=== PATIENT | female | born 1995 ===

== ENCOUNTER 2020-09-25 10:42 | Outpatient (CLI) | payer OTHER ==
[2020-09-26 11:06] LABS: SARS-CoV-2 MS2 Positive; SARS-CoV-2 N Gene Negative; SARS-CoV-2 S Gene Negative; SARS-CoV-2 by NAA Not Detected (NotDetected); SARS-CoV-2 orf1ab Negative
== END 2020-09-25 10:43 | disposition home or self-care (01) ==
LOC: LABBT 10:42
PROVIDERS: ATTEND Advanced Practice Midwife
DX: Z20.828 Contact with and (suspected) exposure to other viral communicable diseases (principal)
CPT/HCPCS: 87635; U0003

== ENCOUNTER 2020-09-27 18:00 | Inpatient (IN) | payer OTHER ==
[~2020-09-27 18:00] MED LIST: Bupivacaine 0.25% HCL 30 ML VIAL ONE; Bupivacaine HCl 0.5%/Epinephrine 1:200,000/PF 30 ml Vial ONE; Bupivacaine/Epinephrine 0.25% 30 ML VIAL ONE; Lidocaine 2% MPF 10 ML AMP (For Epidural Use) ONE
[2020-09-27 19:22] VITALS: BMI 32.5
[2020-09-27] MEDS: Lactated Ringer's 1,000 ML IV SCH (19:30)
[2020-09-27] MEDS ORDERED: Lidocaine 1% (PF) 30 ML VIAL SC PRN (19:34)
[2020-09-27] MEDS ORDERED: hydrALAZINE 20 MG/ML VIAL SLOW IVP PRN (19:34)
[2020-09-27] MEDS ORDERED: Butorphanol Tartrate 1 MG/ML VIAL SLOW IVP PRN (19:34)
[2020-09-27] MEDS ORDERED: Promethazine HCl 25 MG/ML VIAL IM PRN (19:34)
[2020-09-27] MEDS ORDERED: NS / Oxytocin 40 units/1000ml 1,000 ML IV PRN (19:34)
[2020-09-27] MEDS ORDERED: Ibuprofen 800 MG TAB PO PRN (19:34)
[2020-09-27] MEDS ORDERED: HYDROcodone/Acetaminophen 5/325 mg Tablet PO PRN ×2 (19:34)
[2020-09-27] MEDS ORDERED: Misoprostol 200 MCG TAB PR PRN (19:34)
[2020-09-27] MEDS ORDERED: Penicillin G Potassium 5 MILL.UNITS in Sodium Chloride 0.9% 100 ML IVPB SCH (19:45)
--- NOTE | 2020-09-27 19:47 | PDOC.LDHP ---
Labor and Delivery H&P Chief complaint: scheduled induction HPI: Arrives for scheduled IOL Current gestational age (weeks): 39 Due date: 09/30/20 Grav: 3 Para: 1 OB History Details: 2018 PCS for macrocosmia. Pt did not labor. PPH and blood transfusion. 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 Current complications: none Abnormal US findings: No Current medications: pre-rene vitamins Previous surgical history: low tranverse CS (2017), dilation and curettage (2018) Allergies/Adverse Reactions: Allergies Allergy/AdvReac Type Severity Reaction Status Date / Time No Known Allergies Allergy Verified 09/27/20 19:22 Social history: none - Physical Exam Vital signs reviewed and normal: yes General: NAD, resting Lungs: nonlabored breathing Abdomen: gravid FHT: category 1 - OB Labs Blood type: A RH: positive Antibody Screen: negative HIV: negative RPR: negative HEPSAg: negative 1 hour GCT: negative GBS: positive Urine drug screen: negative Rubella: immune Additional Labs: COVID neg - Assessment L&D Assessment: elective induction at term - Plan Plan: admit to L&D, informed consent obtained, anesthesia consult for pain management
[2020-09-27 21:36] LABS: Hemoglobin 13.5 g/dL (12.0-16.0); Mean Corpuscular HGB CONC 35.2 g/dL (32.0-36.0); Mean Corpuscular Hemoglobin 32.3 pg (27.0-31.0); Mean Corpuscular Volume 91.6 fL (78.0-98.0); Mean Platelet Volume 8.5 fL (7.4-10.4); Platelet Count 181 thou/uL (130-400); RBC Distribution Width 13.4 % (11.5-14.5); Red Blood Cell (RBC) Count 4.17 mill/uL (4.20-5.40); White Blood Cell (WBC) Count 10.3 thou/uL (4.8-10.8)
[2020-09-27 22:16] LABS: Syphilis Antibody Nonreactive (Nonreactive); Syphilis Antibody Index 0.05 S/CO (<1.00 Non-Reactive)
[2020-09-27 23:46] LABS: Hep B Surf Ag Non-Reactive S/CO (NonReactive)
[2020-09-28] MEDS: Penicillin G 2.5 MILL.units 2.5 MILL.UNITS in Premix Bag 1 BAG IVPB SCH ×6 (01:06→21:52)
[2020-09-28] MEDS: Lactated Ringer's 1,000 ML IV SCH ×3 (07:05→23:33)
[2020-09-28] MEDS: NS w/ Oxytocin 10 units 500 ML IV SCH (08:30)
[2020-09-28] MEDS ORDERED: Lidocaine 1% (PF) 30 ML VIAL ONE (12:50)
[2020-09-28] MEDS ORDERED: Butorphanol Tartrate 1 MG/ML VIAL ONE ×2 (12:54)
--- NOTE | 2020-09-28 17:11 | PDOC.LDPN ---
Labor & Delivery Progress Note - Subjective Subjective: painful contractions - Objective Vital signs reviewed and normal: yes General: breathing through contractions Uterine fundus: non tender Dilation: 3 Effacement: 75% Station: -3 FHT: category 1 AROM: meconium stained fluid IUPC placed: yes - Assessment (1) 39 weeks gestation of Code(s): Z3A.39 - 39 WEEKS GESTATION OF Current Visit: Yes Status: Acute (2) Encounter for trial of labor Code(s): NZX2005 - Current Visit: Yes Status: Acute Plan: pitocin for augmentation -: IUPC placed. AROM meconium stained fluid. Reassess with MVUs greater than 200 for 2 hours.
[2020-09-28] MEDS ORDERED: Fentanyl 4 mcg/Bup 0.1% Cadd 100 ML ONE (19:47)
[2020-09-28] MEDS ORDERED: diphenhydrAMINE 50 MG/ML VIAL IVP PRN (22:27)
[2020-09-28] MEDS ORDERED: Promethazine HCl 25 MG/ML VIAL IM PRN (22:27)
[2020-09-28] MEDS ORDERED: EPHEDRINE 25 MG/5 ML SYRINGE SLOW IVP PRN (22:27)
[2020-09-28] MEDS ORDERED: Naloxone HCl 0.4 mg/ml Vial IVP PRN ×2 (22:27)
[2020-09-28] MEDS ORDERED: Ondansetron PF 4 MG/2 ML Vial IVP PRN (22:27)
[2020-09-28] MEDS ORDERED: Lactated Ringer's 500 ML IV PRN (22:27)
[2020-09-28] MEDS ORDERED: Acetaminophen 325 MG TAB PO PRN (22:27)
[2020-09-28] MEDS ORDERED: Communication Order-Pharmacy FS SCH (22:30)
[2020-09-28] MEDS ORDERED: Fentanyl 4 mcg/Bupivacaine 0.1% Cassette 100 ML EPIDURAL SCH (22:30)
[2020-09-28] MEDS: Ondansetron PF 4 MG/2 ML Vial IVP PRN (23:29)
[2020-09-29] MEDS: NS w/ Oxytocin 10 units 500 ML IV SCH ×2 (00:04→11:12)
[2020-09-29] MEDS: Penicillin G 2.5 MILL.units 2.5 MILL.UNITS in Premix Bag 1 BAG IVPB SCH ×4 (02:17→16:36)
[2020-09-29] MEDS ORDERED: Fentanyl 4 mcg/Bup 0.1% Cadd 100 ML ONE (04:42)
[2020-09-29] MEDS: Ondansetron PF 4 MG/2 ML Vial IVP PRN (09:05)
[2020-09-29] MEDS: Lactated Ringer's 1,000 ML IV SCH (10:03)
[2020-09-29] MEDS ORDERED: Azithromycin 500 MG VIAL ONE (13:07)
[2020-09-29] MEDS ORDERED: Bicitra 30 ML UDCUP ONE (13:07)
[2020-09-29] MEDS ORDERED: Ondansetron PF 4 MG/2 ML Vial ONE ×2 (13:52→14:57)
[2020-09-29] MEDS ORDERED: Oxytocin 10 UNITS/ML VIAL ONE (13:52)
[2020-09-29] MEDS ORDERED: ePHEDrine 50 MG/ML VIAL ONE (13:52)
--- NOTE | 2020-09-29 13:54 | PDOC.BPN ---
- Brief Progress Note Encounter Date: 09/29/20 Encounter Time: 13:15 Patient is 690/0 MVUs were between 80-100 on 19 of pitocin. Pitocin was turned off for 45 minutes for the second time in effort to down regulate receptors. Pitocin was restarted at 2units and increased every 15. Uterine contractions were minimal with nearly absent MVUs. I explained that the current labor progress is outside of the normal expectations and the uterine lacked inertia to contract strongly enough to continue to dilate. I discussed the risks of continuing augmentation vs RCS with patient. We discussed the increased risk of PPH with prolonged labor along with a history of PPH. I left the patient to discuss options with . They agreed to a RCS at this time. The patients did seem upset. I asked if there were any questions I could answer for them, which he stated no.
[2020-09-29] MEDS ORDERED: CEFAZOLIN 2 GM in Premix Bag 1 BAG IVPB SCH (14:00)
[2020-09-29] MEDS ORDERED: Bicitra 30 ML UDCUP PO SCH (14:00)
[2020-09-29] MEDS ORDERED: Azithromycin 500 MG in Sodium Chloride 0.9% 250 ML 250 ML IVPB SCH (14:00)
[2020-09-29] MEDS ORDERED: Carboprost 250 MCG/ML AMP ONE (14:04)
[2020-09-29] MEDS ORDERED: Methylergonovine 0.2 MG/ML VIAL ONE (14:04)
[2020-09-29] MEDS ORDERED: Lidocaine 2% 10 ML INJ ONE (14:30)
[2020-09-29] MEDS ORDERED: Lidocaine 1% (PF) 30 ML VIAL ONE (14:40)
[2020-09-29] MEDS ORDERED: Rocuronium Bromide 10 MG/ML (10ML VIAL) ONE (14:57)
[2020-09-29] MEDS ORDERED: Succinylcholine Chloride 20 MG/ML 10 ml SYRINGE FS ONE (14:57)
[2020-09-29] MEDS ORDERED: PROPOFOL 200 MG/20 ML VIAL ONE (14:57)
[2020-09-29] MEDS ORDERED: SUGAMMADEX SODIUM 200 MG/2 ML VIAL ONE (15:09)
--- NOTE | 2020-09-29 15:27 | PDOC.BPN ---
- Brief Progress Note Encounter Date: 09/29/20 Encounter Time: 15:30 OP NOTE See dictation repeat LTCS via pfannenstiel without issues. mec stained fluid noted. Skin sutured
--- NOTE | 2020-09-29 16:09 | OP ---
DATE OF PROCEDURE: 09/29/2020 TIME OF INTERVENTION: Roughly 1500, it is now about 1520. PREOPERATIVE DIAGNOSES: 1. Unsuccessful trial of labor after . 2. Failure to progress/arrest of dilation. POSTOPERATIVE DIAGNOSES: 1. Unsuccessful trial of labor after . 2. Failure to progress/arrest of dilation. 3. Status post repeat . PROCEDURES PERFORMED: Repeat low-transverse section via Pfannenstiel skin incision without complication. SURGEONS: Antonio Mathew MD PROJECT COORDINATOR RN: Jennifer Rich. ANESTHESIA: Labor epidural converted to general anesthesia just before hysterotomy creation. ANTIBIOTICS: Ancef and Zithromax per protocol (please see anesthesia record for specifics). IV FLUIDS: Crystalloid (please see IV fluid, in's and out's per Anesthesia). ESTIMATED BLOOD LOSS: Roughly 300 to 400 mL, but QBL is pending. COMPLICATIONS: None. COUNTS: Correct. PATHOLOGY: Placenta. People present in the room included the NICU team per routine. INDICATION FOR PROCEDURE: This is a patient who has been undergoing a prolonged trial of labor after with labor augmentation with Pitocin. Per Jennifer Rich, we discussed this case and the plan was made to proceed with a repeat due to failure to progress and uterine dysfunctional labor/uterine inertia despite multiple attempts at Pitocin titration. NARRATIVE/ TECHNIQUE: The patient was taken to the operating room, where she was successfully dosed of her labor epidural anesthetic. The patient's abdomen was prepped and draped in the usual sterile fashion. A Pfannenstiel skin incision was made in the area of the old scar and the old scar was not necessary for removal. Bovie cautery on cut mode was used to dissect the subcutaneous tissue down to the level of the fascia. Fascia was identified, cleaned off any overlying fat, and entered in a transverse fashion in the usual manner. This was done with Bovie cautery on cut mode. Care was taken to avoid underlying structures. Rectus muscles were off the fascia both superiorly and inferiorly from the midline using Sherry clamps. Rectus muscles were out laterally from the midline, and no complications were noted. After entry to the peritoneum, the patient was not tolerating the pain well despite giving 20 mL of lidocaine 1% without epinephrine injected into the subcu tissue and skin incision, and another 10 mL 1% lidocaine plain instilled into the abdominal pelvic cavity after entry into the peritoneum. Because of this, Anesthesia/BRUSH MAKER MACHINE attempted nitrous inhalation, but this was not successful. The patient had a conversion to general endotracheal anesthesia before hysterotomy. Hysterotomy was made in the usual fashion without complication and baby was delivered in an atraumatic technique. The baby was in a cephalic presentation. Delayed cord clamping was allowed for about 30 seconds. Cord was then doubly clamped, transected, and the baby was handed to the NICU team, who was present for delivery. It is important to note that at entrance into the uterine cavity, moderate meconium-stained fluid was noted, but this was suctioned out of the mouth and nares after head delivery, before body was delivered. Then, the placenta was gently massaged out of the uterine cavity and it was intact. It was sent to Pathology for documentation. The uterus was left in situ for repair. A dry laparotomy sponge was used to curettage the uterine cavity signifying lack of any retained products of conception. Next, 0 Vicryl was used to close the hysterotomy using a 2-layer closure. Second layer imbricated the first. Next, copious irrigation was performed, and after confirming hemostasis and that all counts were correct, the rectus muscles were reapproximated in the midline using 2-0 chromic in a running nonlocking loose closure. Fascia was closed with 0 PDS suture x2 in a running nonlocking fashion and tied in the middle. After confirming hemostasis, the subcutaneous tissue was copiously irrigated. Subcu tissue was closed with 3-0 plain gut, and the skin was closed with a suture in the typical fashion. No complications were noted. A point to note that I left just after fascial closure and Jennifer Rich closed the subcutaneous tissue and the skin. No complications were noted. Job ID: [id number] [facility]
[2020-09-29] MEDS ORDERED: Naloxone HCl 0.4 mg/ml Vial IVP PRN ×2 (16:43)
[2020-09-29] MEDS ORDERED: L&D-Morphine 4 MG/ML VIAL SLOW IVP PRN (16:43)
[2020-09-29] MEDS ORDERED: Naloxone HCl 0.4 mg/ml Vial IV PRN (16:43)
[2020-09-29] MEDS ORDERED: Meperidine HCl/PF 25 MG/ML VIAL SLOW IVP PRN (16:43)
[2020-09-29] MEDS ORDERED: HYDROmorphone 2 MG/ML VIAL SLOW IVP PRN (16:43)
[2020-09-29] MEDS ORDERED: Promethazine HCl 25 MG/ML VIAL IM PRN (16:43)
[2020-09-29] MEDS ORDERED: Promethazine HCl 25 MG SUPP PR PRN (16:43)
[2020-09-29] MEDS ORDERED: diphenhydrAMINE 50 MG/ML VIAL IVP PRN (16:43)
[2020-09-29] MEDS ORDERED: Ketorolac Tromethamine 30 MG/ML VIAL IVP SCH (16:45)
[2020-09-29] MEDS ORDERED: Communication Order-Pharmacy FS SCH (16:45)
[2020-09-29] MEDS ORDERED: Ketorolac Tromethamine 30 MG/ML VIAL ONE (16:54)
[2020-09-29] MEDS: Ketorolac Tromethamine 30 MG/ML VIAL IVP PRN (17:00)
[2020-09-29] MEDS ORDERED: Bisacodyl 10 MG SUPP PR PRN (17:24)
[2020-09-29] MEDS ORDERED: Lanolin Ointment 7 GM TUBE TOP PRN (17:24)
[2020-09-29] MEDS ORDERED: Simethicone Chewable 80 MG TAB PO PRN (17:24)
[2020-09-29] MEDS ORDERED: Methylergonovine 0.2 MG/ML VIAL IM PRN (17:24)
[2020-09-29] MEDS ORDERED: hydrALAZINE 20 MG/ML VIAL SLOW IVP PRN (17:24)
[2020-09-29] MEDS ORDERED: NS / Oxytocin 40 units/1000ml 1,000 ML IV SCH (17:24)
--- NOTE | 2020-09-29 18:11 | PDOC.BPN ---
- Brief Progress Note Encounter Date: 09/29/20 Encounter Time: 18:10 Just called by Lenore...Pt in RR was sleeping without pain but noted O2sats in high 80s to low 90s. Anesthesia aware and will assess for etiologies (oversedation? Aspiration from GETA?). I have ordered a CXR now. Pilar Rich aware.
--- NOTE | 2020-09-29 18:30 | RAD ---
Chest AP view INDICATION: Postoperative patient following section; hypoxia COMPARISON: None FINDINGS: Lungs: The lungs are clear Cardiac silhouette: Heart size is accentuated by the exam technique; however, there is mild cardiome sahara. Pulmonary vasculature: Pulmonary vasculature is mildly prominent. Pleural spaces: No pleural effusion or pneumothorax is demonstrated. Upper abdomen: No abnormality seen. Osseous structures: No acute osseous abnormality. Additional findings: None. IMPRESSION: Mild cardiomegaly and mild pulmonary vascular congestion.
--- NOTE | 2020-09-29 18:40 | PDOC.BPN ---
- Brief Progress Note Encounter Date: 09/29/20 Encounter Time: 18:40 I am at bedside. POC reviewed with the patient/. Anesthesia aware. CXR taken and results pending. Will check stat H&H. Abd is soft and ND. I do not suspect intraabdominal isue at this time. I do not suspect pulmonary embolic issue. May be atelectasis vs lack of deep beathing due to fear of pain. Clinically, she looks well and is stable. Pulse 70s
[2020-09-29] MEDS ORDERED: Furosemide 20 MG/2 ML VIAL SLOW IVP SCH (18:45)
--- NOTE | 2020-09-29 18:45 | PDOC.BPN ---
- Brief Progress Note Encounter Date: 09/29/20 Encounter Time: 18:44 CXR wiht slight "Cardiomegaly" but this is not that abnormal on PP CXR. I do not suspect acute cardiac pathology at this time. Lasix x 1 now emperically
[2020-09-29 19:02] LABS: Hemoglobin 12.7 g/dL (12.0-16.0)
[2020-09-29] MEDS: Docusate Calcium (SURFAK) 240 MG CAP PO SCH (22:11)
[2020-09-29] MEDS: Ferrous Sulfate 325 MG TAB PO SCH (22:12)
[2020-09-30] MEDS ORDERED: Ondansetron PF 4 MG/2 ML Vial IVP PRN (01:24)
[2020-09-30] MEDS ORDERED: Sodium Chloride 0.9% 10 ML ONE ×2 (01:26→11:21)
[2020-09-30] MEDS: Lactated Ringer's 1,000 ML IV SCH (03:13)
[2020-09-30] MEDS: Ketorolac Tromethamine 30 MG/ML VIAL IVP PRN ×2 (03:51→11:21)
[2020-09-30] MEDS ORDERED: HYDROcodone/Acetaminophen 5/325 mg Tablet PO PRN ×2 (04:45)
[2020-09-30 06:06] LABS: Hemoglobin 12.1 g/dL (12.0-16.0); Mean Corpuscular HGB CONC 34.1 g/dL (32.0-36.0); Mean Corpuscular Hemoglobin 31.2 pg (27.0-31.0); Mean Corpuscular Volume 91.5 fL (78.0-98.0); Mean Platelet Volume 8.4 fL (7.4-10.4); Platelet Count 140 thou/uL (130-400); RBC Distribution Width 13.4 % (11.5-14.5); Red Blood Cell (RBC) Count 3.88 mill/uL (4.20-5.40); White Blood Cell (WBC) Count 9.1 thou/uL (4.8-10.8)
[2020-09-30] MEDS: Docusate Calcium (SURFAK) 240 MG CAP PO SCH ×2 (08:41→21:24)
[2020-09-30] MEDS: Prenatal Vitamin 1 TAB PO SCH (08:41)
[2020-09-30] MEDS ORDERED: Adacel (T-DAP) 0.5 ML SYRINGE IM ONE (09:00)
[2020-09-30] MEDS: Ferrous Sulfate 325 MG TAB PO SCH ×2 (10:41→21:25)
--- NOTE | 2020-09-30 15:12 | PDOC.PP ---
Post Progress Note Post Day #: 1 Subjective: Pt is doint well. feeling better than with first c section. . PO intake tolerated: yes Flatus: yes Ambulation: yes Vital Signs (12 hours) Temp Pulse Resp BP Pulse Ox 09/30/20 09:20 98 09/30/20 08:42 97.7 F 93 18 120/77 95 09/30/20 04:00 98.0 F 72 14 122/80 94 L Weight Weight 178 lb - Physical Examination General: NAD Respiratory: non-labored breathing Abdominal: no distention Extremities: negative homans (B) Skin: no rash Psychiatric: A&Ox3, normal affect Result Diagrams: 09/30/20 05:30 Additional Labs: Post Labs Hep Bs Antigen Non-Reactive S/CO (NonReactive) 09/27/20 21:21 Blood Type A POSITIVE 09/27/20 21:56 (1) 39 weeks gestation of Code(s): Z3A.39 - 39 WEEKS GESTATION OF Status: Acute (2) Encounter for trial of labor Code(s): LPP0949 - Status: Acute - Assessment/Plan A: now p2 s/p RCS. P: routine care d/c pulse ox walk x 3 in halls notify RN is SOB, difficultly breathing, chest palpitations.
--- NOTE | 2020-09-30 15:31 | RAD ---
PORTABLE CHEST: 09/30/20 PROVIDED CLINICAL HISTORY: Hypoxia. FINDINGS: Comparison 09/02/20. The cardiac silhouette appears enlarged, which may be at least partially on the basis of portable mariusz hnique. No vascular congestion, focal consolidation, pleural fluid or pneumothorax apparent. IMPRESSION: No evidence for an acute cardiopulmonary process. POS: ARVIN
[2020-09-30] MEDS: Acetaminophen 325 MG TAB PO PRN ×2 (18:09→22:04)
[2020-09-30] MEDS: Ibuprofen 800 MG TAB PO SCH (22:16)
[2020-10-01 05:34] VITALS: TEMP 98.5
[2020-10-01] MEDS: Ibuprofen 800 MG TAB PO SCH (05:57)
--- NOTE | 2020-10-01 07:27 | PDOC.PP ---
Post Progress Note Post Day #: 2 Subjective: Pt doing well this morning. no complaints. progressing well. breast feeding. PO intake tolerated: yes Flatus: yes Ambulation: yes Vital Signs (12 hours) Temp Pulse Resp BP Pulse Ox 10/01/20 05:05 98.5 F 86 18 129/84 96 10/01/20 00:24 98.3 F 87 18 123/66 96 09/30/20 20:30 98.3 F 94 18 118/76 97 Weight Weight 80.739 kg - Physical Examination General: NAD Cardiovascular: no m/r/g Respiratory: clear to auscultation bilaterally Abdominal: + bowel sounds, no distention, appropriately TTP Skin: CS incision dry & intact, no rash Neurological: no gross focal deficits Psychiatric: A&Ox3, normal affect Result Diagrams: 09/30/20 05:30 Additional Labs: Post Labs Hep Bs Antigen Non-Reactive S/CO (NonReactive) 09/27/20 21:21 Blood Type A POSITIVE 09/27/20 21:56 - Assessment/Plan Failed TOLAC POD2 s/p rLTCS - pt states she is feeling much better with this than her previous - very minimal lochia - pain is well controlled - prefers DC home today Plan: DC home later this morning. F/u w/ MsAllison Rich in 2 weeks.
[2020-10-01] MEDS: Ferrous Sulfate 325 MG TAB PO SCH (09:07)
[2020-10-01] MEDS: Prenatal Vitamin 1 TAB PO SCH (09:07)
[2020-10-01] MEDS: Docusate Calcium (SURFAK) 240 MG CAP PO SCH (09:07)
[2020-10-01 09:59] VITALS: BP 132/68
--- NOTE | 2020-10-03 03:13 | PQF ---
CLINICAL DOCUMENTATION CLARIFICATION FORM: Dear : Antonio Mathew Date / Time: 10/03/20312 Please exercise your independent, professional judgment in responding to the clarification form. Clinical indicators are provided on the bottom of this form for your review Please check appropriate box(es) to clarify if the following diagnosis has been ruled in our ruled out: Atelectasis [ ] Ruled in diagnosis [ ] Continue to treat [ ] Resolved [ ] Ruled out diagnosis [ X] Improving [ ] Cannot rule out diagnosis [ X ] Other diagnosis __Atelectasis immediate postop [ ] Unable to determine Physician Signature: Date/Time: For continuity of documentation, please document condition throughout progress notes and discharge summary. Thank You. To be completed by CDI/Coding staff for physician review: Present Clinical Indicators - Signs / Symptoms / Labs Results and Location in Medical Record [X] BP 117/76, Pulse 99, Resp 18, Temp 98.0 Vital signs 09/27 [X] O2 sat 93%; 94% Vital signs 09/30 [X] Chest X-ray Impression: Mild Cardiomegaly and mild pulmonary congestion Imaging Dr Gamboa 09/29 [X] Pt in RR was sleeping without pain but noted O2 sats in high 80s to low 90s PN p1 09/29 Dr Mathew [X] May be atelectasis vs lack of deep breathing due to fear of pain PN p1 09/29 Dr Mathew Present Risk Factors Results and Location in Medical Record [X] Term IUP Operative report p1 09/29 Dr Mathew [X] s/p repeat LOW CS Operative report p1 09/29 Dr Mathew [X] Failure to progress/Arrest of dilation Present Treatments Results and Location in Medical Record [X] IVF NS 1L FEB 07 [X] IV Pen G 5mill.units FEB 07 [X] IV Lactated ringers 1L FEB 07 [X] IV Lasix 20 mg FEB 07 [X] Chest X-ray Imaging Dr Gamboa 09/29 [X] Oxygen 3L Respiratory Panel 09/29 CDS/Voltage Regulator Assembler Signature: Shefali Pili Hamptonmazinbela Phone #: [phone] Date/Time: 10/03/2020312 This is a permanent part of the Medical Record [facility]
== END 2020-10-01 11:11 | disposition home or self-care (01) | DRG 787 ==
LOC: L&D 18:17 → 3SE 09-30 01:02 → 3SW 09-30 17:10
PROVIDERS: ADMIT Obstetrics & Gynecology; ATTEND Obstetrics & Gynecology
PROC: 10H07YZ Insertion of Other Device into Products of Conception, Via Natural or Artificial Opening (ICD-10-PCS; 2020-09-28)
PROC: 10907ZC Drainage of Amniotic Fluid, Therapeutic from Products of Conception, Via Natural or Artificial Opening (ICD-10-PCS; 2020-09-28)
PROC: 10D00Z1 Extraction of Products of Conception, Low, Open Approach (ICD-10-PCS; principal; 2020-09-29)
DX: O99.824 Streptococcus B carrier state complicating childbirth (principal); J98.11 Atelectasis; Z3A.39 39 weeks gestation of pregnancy; Z37.0 Single live birth; Z20.828 Contact with and (suspected) exposure to other viral communicable diseases; O34.211 Maternal care for low transverse scar from previous cesarean delivery; O77.0 Labor and delivery complicated by meconium in amniotic fluid; O62.1 Secondary uterine inertia; I51.7 Cardiomegaly; O99.43 Diseases of the circulatory system complicating the puerperium; O99.53 Diseases of the respiratory system complicating the puerperium
CPT/HCPCS: 36415; 51702; 71045; 85014; 85018; 85027; 86780; 86850; 86900; 86901; 87340; 87635; 88307; J0456; J0690; J1200; J1885; J1940; J2001; J2270; J2405; J2540; J2550; J2590; J2704; J3490; S0020; U0003